=== PATIENT | female | born 1995 | race Caucasian/White ===

== ENCOUNTER 2016-04-18 10:24 | Outpatient (CLI) | payer MEDICAID ==
[~2016-04-18] VITALS: Ht 157.5 cm; Wt 95.7 kg
[2016-04-18 10:38] VITALS: Ht 157.5 cm; Wt 95.7 kg
[2016-04-18 10:39] VITALS: BP 103/52; PULSE 69; RESP 18
[2016-04-18] MEDS ORDERED: LACTATED RINGER'S 1,000 ML IV SCH (11:00)
[2016-04-18] MEDS ORDERED: LACTATED RINGER'S 1,000 ML IV ONE (11:00)
[2016-04-18] MEDS ORDERED: TERBUTALINE 1 MG/ML INJ SC ONE (11:00)
[2016-04-18] MEDS ORDERED: TERBUTALINE 1 ML ONE (11:01)
[2016-04-18 11:21] LABS: ADD UMIC YES; URINE BILIRUBIN (Dip) NEGATIVE (NEGATIVE); URINE BLOOD (Dip) NEGATIVE (NEGATIVE); URINE COLOR LT. YELLOW (YELLOW); URINE GLUCOSE (Dip) NEGATIVE (NEGATIVE); URINE KETONES (Dip) NEGATIVE (NEGATIVE); URINE LEUKOCYTE ESTERASE (Dip) TRACE (NEGATIVE); URINE NITRITE (Dip) NEGATIVE (NEGATIVE); URINE TOTAL PROTEIN (Dip) NEGATIVE (NEGATIVE); URINE UROBILINOGEN (Dip) 0.2 E.U./dL (0.1-1.0)
[2016-04-18 11:41] LABS: BACTERIA,URINE MODERATE; SQUAMOUS EPITHELIAL CELL,UR FEW; URINE RBCS NONE SEEN /HPF (0)
--- NOTE | 2016-04-18 11:44 | RADRPT ---
PROCEDURE: Limited obstetric ultrasound CLINICAL INDICATION: labor TECHNIQUE: Multiple transverse and longitudinal grayscale images of the pelvis were obtained win sabdominally and endovaginally.. COMPARISON: None FINDINGS: There is a single live intrauterine gestation in a vertex position with a heart rate of 132 bp m. The cervix is closed and measures 4.6 cm in length. RPTAT: AA IMPRESSION: The cervix is closed and measures 4.6 cm in length. Diogenes Jaime Physician Date Time Electronically viewed and signed by Diogenes Jaime Physician on 04/18/2016 11:44 RA/
== END 2016-04-18 14:28 | disposition home or self-care (01) ==
LOC: OBT 10:24 → L-D 10:25 → OBT 14:28
PROVIDERS: ATTEND Obstetrics & Gynecology
DX: O60.03 Preterm labor without delivery, third trimester (principal); Z3A.00 Weeks of gestation of pregnancy not specified
CPT/HCPCS: 76817; 81001; J3105; J7120; Z7500; 81003; G0463

== ENCOUNTER 2016-05-19 18:36 | Outpatient (CLI) | payer MEDICAID ==
[~2016-05-19] VITALS: Ht 157.5 cm; Wt 99.8 kg
[2016-05-19 18:58] VITALS: BP 111/64; PULSE 78; RESP 18
[2016-05-19] MEDS ORDERED: PRENAT PO (19:01)
[2016-05-19] MEDS ORDERED: FERR325C PO (19:01)
--- NOTE | 2016-05-19 19:39 | RADRPT ---
PROCEDURE: US OB biophysical profile. CLINICAL INDICATION: evaluation TECHNIQUE: Multiple sonographic images of the pelvis were obtained. The images were reviewed on a PACS workstation. COMPARISON: No prior studies are available for comparison. FINDINGS: There is a single viable intrauterine gestation. Cardiac activity is present with 141 beats per min brian. There is a vertex presentation. The placenta is anterior. There is no evidence of placental abruption. There is a normal amount of amniotic fluid with an MATT = 8.9 cm. Biophysical profile: movement 2/2 tone 2/2. breathing 2/2 MATT 2/2 Total 10/25 RPTAT: AA . IMPRESSION: Normal biophysical profile. Physician Robles Date Time Electronically viewed and signed by Physician Robles on 05/19/2016 19:38 /
--- NOTE | 2016-05-19 20:04 | PN ---
Date/Time of Note Date/Time of Note DATE: 05/19/16 TIME: 19:45 OB Subjective Subjective Subjective 21 yo P1011@ 37wks 4 days c/o LOF; she is not sure if it was urine good fm, no VB, no ctx OB Objective Objective Objective Nml VS Abdomen- gravid, n/t SVE- deferred FHT- 140's; Cat I [place]- no ctx Abdomen: WNL Heart Rate: 140's Accelerations: Accelerations Present Decelerations: No Decelerations Varibility: Moderate Contractions on Admission: None OB Assessment/Plan Other Assessment: 21 yo P1@ 37.4 wks, r/o SROM - reassuring status -unlikely sROM, nitrazine neg; MATT 8.8, BPP 8/8 Other plan: send ROM + if negative, d/c home w labor pecautions EMILIA HOPKINS MD May 19, 2016 20:04
--- NOTE | 2016-05-19 21:47 | TRIAGE ---
OB Triage Datetime Report Generated by CPN: 05/19/2016 21:46 Datetime: 05/19/2016 21:17 Stage of : OB Triage Labor Evaluation Frequency: 6-12 Monitor Mode: External Duration (sec)2399: 60-100 Quality: Mild Resting Tone [place]: Relaxed Heart Rate FHR Baseline Rate: 125 Monitor Mode: External US FHR Baseline Changes: No Baseline Change Variability: Moderate 6-25 bpm Accelerations: 15X15 Decelerations: None Category: Category I Datetime: 05/19/2016 21:16 Vaginal Exam Dilatation (cms): 2.0 Effacement (%): 50 Station: -3 Exam By: m HAYES Vaginal Bleeding: None Cervix, Consistency: Firm Presentation 'A': Cephalic Datetime: 05/19/2016 20:00 Stage of : OB Triage Labor Evaluation Frequency: 2-12 Monitor Mode: External Duration (sec)2399: 40-100 Quality: Mild Resting Tone [place]: Relaxed Heart Rate FHR Baseline Rate: 135 Variability: Moderate 6-25 bpm Accelerations: 15X15 Decelerations: Variable Datetime: 05/19/2016 19:41 Vaginal Exam Dilatation (cms): 2.0 Effacement (%): 50 Station: -3 Exam By: M HAYES Vaginal Bleeding: None Pool: Negative Nitrazine: Negative Cervix, Consistency: Firm Cervix, Position: Posterior Presentation 'A': Cephalic Datetime: 05/19/2016 19:38 Stage of : OB Triage Datetime: 05/19/2016 19:28 Stage of : OB Triage Datetime: 05/19/2016 18:56 Assessment Type: Triage Maternal Assessment Level of Consciousness: Fully Conscious DTR's/Clonus: DTRs 1+; No Clonus Headache: Denies Blurred Vision: No Respiratory Effort: Unlabored Breath Sounds, Left: Clear and Equal Breath Sounds, Right: Clear and Equal Nausea/Vomiting: Denies RUQ Epigastric Pain: Denies Lower Extremities Edema: None Degree: None Upper Extremities Edema: None Degree: None Facial Edema: None Fall Risk Assessment History of Falling: (0) No Secondary Diagnosis: (15) Yes (Annotations: PTL 1ST ) Ambulatory Aid: (0) Bedrest/Nurse Assist IV Therapy: (0) No Gait: (0) Normal/Bedrest/Immobile Mental Status: (0) Oriented to Own Ability Fall Score: 15 Fall Risk Score Definition: No Risk: No action required Datetime: 05/19/2016 18:51 Time of Arrival: 05/19/2016 18:34 EGA: 37.4 Arrived By: Ambulatory Arrived From: Dr. Peres Chief Complaint: sent from clinic for r/o labor Movement: Present Contractions: Irregular Time Contractions Began: 05/18/2016 22:00 Contractions: q5-10 Rupture of Membranes: Unsure Vaginal Bleeding: None Vaginal Discharge: Present Recent Sexual Intercouse: Denies Abdominal Trauma: Not Applicable Patient Complaints: Contractions; Back Pain Additional Patient Complaints: Pt statese she'been leaking fluid since am Time Provider Notified: 05/19/2016 19:03 Provider Notified: ariane Initial Plan: VS, EFM, SVE, ROM+, BPP Datetime: 05/19/2016 18:44 Stage of : OB Triage Monitor Mode: External Monitor Mode: External US Datetime: 04/18/2016 13:20 Labor Evaluation Frequency: 1/HR Monitor Mode: External Duration (sec)2399: 80 Quality: Mild Pattern: Normal: <= 5 Contractions in 10 Minutes Resting Tone [place]: Relaxed Heart Rate FHR Baseline Rate: 135 Monitor Mode: External US FHR Baseline Changes: No Baseline Change Variability: Moderate 6-25 bpm Accelerations: 15X15 Decelerations: None Category: Category I Datetime: 04/18/2016 12:10 Labor Evaluation Frequency: OCCAS Monitor Mode: External Duration (sec)2399: 50-60 Quality: Mild Pattern: Normal: <= 5 Contractions in 10 Minutes Resting Tone [place]: Relaxed Heart Rate FHR Baseline Rate: 135 Monitor Mode: External US FHR Baseline Changes: No Baseline Change Variability: Moderate 6-25 bpm Accelerations: 15X15 Decelerations: None Category: Category I Datetime: 04/18/2016 11:07 Labor Evaluation Frequency: OCCAS Monitor Mode: External Duration (sec)2399: 40-80 Quality: Mild Pattern: Normal: <= 5 Contractions in 10 Minutes Resting Tone [place]: Relaxed Heart Rate FHR Baseline Rate: 135 Monitor Mode: External US Variability: Moderate 6-25 bpm Accelerations: 15X15 Decelerations: None Category: Category I Datetime: 04/18/2016 10:36 Stage of : OB Triage Assessment Type: Triage Maternal Assessment Level of Consciousness: Fully Conscious DTR's/Clonus: DTRs 2+; No Clonus Headache: Denies Blurred Vision: No Respiratory Effort: Unlabored; Regular Rhythm; Equal Expansion Breath Sounds, Left: Clear and Equal Breath Sounds, Right: Clear and Equal Nausea/Vomiting: Denies RUQ Epigastric Pain: Denies Lower Extremities Edema: Bilateral Lower Extremities Degree: 1+ Upper Extremities Edema: None Degree: None Facial Edema: None Temperature Route: Axillary Fall Risk Assessment History of Falling: (0) No Secondary Diagnosis: (0) No Ambulatory Aid: (0) Bedrest/Nurse Assist IV Therapy: (0) No Gait: (0) Normal/Bedrest/Immobile Mental Status: (0) Oriented to Own Ability Fall Score: 0 Fall Risk Score Definition: No Risk: No action required Labor Evaluation Frequency: 0 Monitor Mode: External Resting Tone [place]: Relaxed Heart Rate FHR Baseline Rate: 135 Monitor Mode: External US Variability: Moderate 6-25 bpm Decelerations: None Category: Category I Pain Assessment Pain Scale: 6 Pain Presence: Intermittent Pain Type: Cramping; Contraction Pain Location: Abdomen Pain Goal: 3 Pain Relief Measures: Comfort Measures Datetime: 04/18/2016 10:35 Time of Arrival: 04/18/2016 10:23 EGA: 33.1 Arrived By: Ambulatory Arrived From: Other Unit in Hospital Chief Complaint: SENT FROM T FOR UC'S, DENIES LEAKING OR BLEEDING Movement: Present Contractions: Occasional Rupture of Membranes: Denies Vaginal Bleeding: None Vaginal Discharge: Denies Recent Sexual Intercouse: Yes Abdominal Trauma: Not Applicable Patient Complaints: Contractions; Cramping Time Provider Notified: 04/18/2016 13:57 Provider Notified: DR HIKCS Initial Plan: MONITOR, NST, UA, IV HYDRATION AND CERVICAL LENGHT
== END 2016-05-19 21:30 | disposition home or self-care (01) ==
LOC: OBT 18:36 → L-D 18:36 → OBT 21:30
PROVIDERS: ATTEND Obstetrics & Gynecology
DX: O26.893 Other specified pregnancy related conditions, third trimester (principal); Z3A.37 37 weeks gestation of pregnancy
CPT/HCPCS: 76818; 84112; Z7500; G0463

== ENCOUNTER 2016-05-23 10:46 | Inpatient (IN) | payer MEDICAID ==
[~2016-05-23] VITALS: Ht 157.5 cm; Wt 97.7 kg
[~2016-05-23 10:46] MED LIST: FERR325C PO; PRENAT PO
[2016-05-23 11:12] VITALS: BP 111/60; PULSE 81; RESP 18; Ht 157.5 cm; Wt 97.7 kg
[2016-05-23] MEDS ORDERED: LACTATED RINGER'S 1,000 ML IV PRN (11:30)
[2016-05-23] MEDS ORDERED: LIDOCAINE 1% (MPF) 30 ML INJ INJ PRN (11:30)
[2016-05-23] MEDS ORDERED: CARBOPROST 250 MCG INJ IM PRN (11:30)
[2016-05-23] MEDS ORDERED: METHYLERGONOVINE 0.2 MG INJ IM PRN (11:30)
[2016-05-23] MEDS ORDERED: OXYTOCIN 30 UNITS/LR 500 ML IV PRN (11:30)
[2016-05-23] MEDS ORDERED: MISOPROSTOL 200 MCG TAB PR PRN (11:30)
[2016-05-23] MEDS ORDERED: IBUPROFEN 600 MG TAB PO PRN (11:30)
[2016-05-23] MEDS ORDERED: OXYTOCIN 30 UNITS/LR 500 ML IV SCH ×3 (11:30→13:00)
[2016-05-23] MEDS ORDERED: BUTORPHANOL 2 MG INJ IV PRN (11:30)
[2016-05-23] MEDS: LACTATED RINGER'S 1,000 ML IV SCH ×2 (11:44→18:09)
[2016-05-23 11:57] LABS: ADD SCAN DIFF NO
[2016-05-23 12:14] LABS: BASOPHILS % 0.3 % (0.0-2.0); EOSINOPHILS # 0.1 10^3/ul (0.0-0.5); EOSINOPHILS % 1.7 % (0.0-7.0); HEMATOCRIT 35.4 % (37.0-47.0); HEMOGLOBIN 12.4 g/dl (12.0-16.0); LYMPHOCYTES # 1.3 10^3/ul (0.8-2.9); LYMPHOCYTES % 21.7 % (15.0-51.0); MEAN CORPUSCULAR HEMOGLOBIN 30.9 pg (29.0-33.0); MEAN CORPUSCULAR VOLUME 88.3 fl (82.0-101.0); MEAN PLATELET VOLUME 9.6 fl (7.4-10.4); MONOCYTE # 0.5 10^3/ul (0.3-0.9); MONOCYTES % 8.1 % (0.0-11.0); NEUTROPHIL # 4.1 10^3/ul (1.6-7.5); NEUTROPHILS % 67.7 % (39.0-77.0); PLATELET COUNT 214 10^3/UL (140-415); RED BLOOD COUNT 4.01 10^6/ul (4.20-5.40); RED CELL DISTRIBUTION WIDTH 13.7 % (11.5-14.5)
[2016-05-23] MEDS ORDERED: ONDANSETRON 4 MG INJ IV STA (12:16)
[2016-05-23 12:18] LABS: INR 0.91; PROTIME 12.2 Sec (12.2-14.2)
[2016-05-23 12:19] LABS: PARTIAL THROMBOPLASTIN TIME 27.5 Sec (25.0-35.0)
[2016-05-23] MEDS ORDERED: CITRIC ACID/NA CITRATE 30 ML CUP PO ONE (12:30)
--- NOTE | 2016-05-23 17:03 | RADRPT ---
PROCEDURE: US biophysical profile. CLINICAL INDICATION: Decreased motion. TECHNIQUE: Multiple sonographic images of the uterus were obtained. The images were revi ewed on a PACS workstation. COMPARISON: 05/19/2016. FINDINGS: There is a single live intrauterine gestation. heart rate is 144 beats per minute. The position is cephalic. The placenta is anterior grade III with no abruption or previa. The MATT is 7.5 cm. (Normal = 5-20 cm.) Breathing Movement: 2 Gross Body Movement: 2 Tone: 2 Qualitative Amniotic Fluid Volume: 2 TOTAL: 8 IMPRESSION: 1. The biophysical score is 8/8. RPTAT: QQ .Ryan Henry MD, MD Date Time Electronically viewed and signed by .Ryan Henry MD, on 05/23/2016 17:02 .R/
--- NOTE | 2016-05-24 11:38 | NSTRPT ---
NST Information Datetime Report Generated by CPN: 05/24/2016 11:38 Datetime: 05/23/2016 08:40 NST Information EGA: 38.1 Test Number: 13 Time on Monitor: 05/23/2016 09:06 Time off Monitor: 05/23/2016 10:14 NST Duration (Min): 68 Reason for NST: Low EMIGDIO Test and Monitor Explained: Monitor Explained; Test Explained; Verbalized Understanding Pulse: 69 Resp: 18 SBP: 114 DBP: 56 Test Evaluation Patient States Movement: Present Contraction Frequency: Q9-13, pt states 5/10 on pain scale FHR Baseline : 140 Variability: Moderate 6-25bpm Accelerations: 15X15 Decelerations: None FHR Category: Category II NST Results: Reactive Comments: To u/s MATT-10.1 CM, CEPH. Strip reviewed by Dr Virk, recommending delivery due to categ oy II tracing with difficulty determining baseline. 1023-Report to Dr Haney, order received to admit to L_D for delivery. 1028-Report called to Silv ia RN, L_D, POC explained to pt, states understanding and denies further questions at this time. Pt to L_D Electronically Signed By E-Signature: with User ID: [id number] Datetime: 05/16/2016 08:48 NST Information EGA: 37.1 NST Duration (Min): 44 Datetime: 05/12/2016 09:35 NST Information EGA: 36.4 NST Duration (Min): 25 Datetime: 05/09/2016 08:25 NST Information EGA: 36.1 NST Duration (Min): 35 Datetime: 05/05/2016 09:37 NST Information EGA: 35.4 NST Duration (Min): 26 Datetime: 05/02/2016 09:18 NST Information EGA: 35.1 NST Duration (Min): 32 Datetime: 04/28/2016 09:39 NST Information EGA: 34.4 NST Duration (Min): 37 Datetime: 04/25/2016 08:20 NST Information EGA: 34.1 NST Duration (Min): 29 Datetime: 04/21/2016 08:45 NST Information EGA: 33.4 NST Duration (Min): 22 Datetime: 04/18/2016 08:58 NST Information EGA: 33.1 NST Duration (Min): 36 Datetime: 04/14/2016 08:25 NST Information EGA: 32.4 NST Duration (Min): 41 Datetime: 04/11/2016 10:21 NST Information EGA: 32.1 Datetime: 04/11/2016 10:11 NST Duration (Min): 21
--- NOTE | 2016-06-13 13:30 | DS ---
Date/Time of Note Date/Time of Note DATE: 06/13/16 TIME: 13:28 Discharge Summary Admission/Discharge Info Admit Date/Time May 23, 2016 at 10:48 Discharge Date/Time May 23, 2016 at 21:15 Final Diagnosis R/O labor Patient Condition: Good Hx of Present Illness Term rule out labor Hospital Course Uneventful Home Meds Reported Medications Ferrous Sulfate (Iron) 325 Mg Capsule.er, 325 MG PO DAILY, CAP 05/19/16 Multivit/Min/Fol Ac/Iron/Pren* ( S*) 1 Tab Tab, 1 TAB PO DAILY, TAB 05/19/16 Follow-up Plan Follow-up at the clinic to call for appointment TIMOTHY HICKS MD Jun 13, 2016 13:30
== END 2016-05-23 21:15 | disposition home or self-care (01) | DRG 778 ==
LOC: EDSTATUS 10:46 → L-D 10:48
PROVIDERS: ADMIT Obstetrics & Gynecology; ATTEND Obstetrics & Gynecology
DX: O60.03 Preterm labor without delivery, third trimester (principal); Z3A.38 38 weeks gestation of pregnancy
CPT/HCPCS: 59025; 76816; 76818; 85025; 85610; 85730; 86592; 86900; 86901; 87340; J2590; J7120

== ENCOUNTER 2016-05-27 11:42 | Outpatient (CLI) | payer MEDICAID ==
[~2016-05-27] VITALS: Ht 157.5 cm; Wt 99.8 kg
[2016-05-27 12:07] VITALS: Ht 157.5 cm; Wt 99.8 kg
[2016-05-27 12:08] VITALS: BP 115/59; PULSE 81; RESP 18
--- NOTE | 2016-05-27 12:47 | TRIAGE ---
OB Triage Datetime Report Generated by CPN: 05/27/2016 12:46 Datetime: 05/27/2016 11:58 Time of Arrival: 05/27/2016 11:40 EGA: 38.5 Arrived By: Ambulatory Arrived From: Home Chief Complaint: Pt's abdomen grazed into countertop "like a splinter that went deep". Pt also c/o contractions Movement: Decreased Contractions: Regular Rupture of Membranes: Denies Vaginal Discharge: Denies Recent Sexual Intercouse: Denies Abdominal Trauma: Not Applicable Patient Complaints: Contractions; Other Time Provider Notified: 05/27/2016 12:00 Provider Notified: Kurt Initial Plan: NST Datetime: 05/27/2016 11:53 Temperature Route: Oral Datetime: 05/27/2016 11:44 Stage of : OB Triage Datetime: 05/23/2016 21:15 Pain Assessment Comments: PT. STATES THAT PAIN IS TOLERABLE, AND UNCHANGED Datetime: 05/23/2016 21:00 Labor Evaluation Frequency: 3-7 Monitor Mode: External Duration (sec)2399: 40-70 Pattern: Normal: <= 5 Contractions in 10 Minutes Heart Rate FHR Baseline Rate: 135 Monitor Mode: External US FHR Baseline Changes: No Baseline Change Variability: Moderate 6-25 bpm Accelerations: 15X15 Decelerations: None Category: Category I Comments: NST REACTIVE FOR D/C HOME Datetime: 05/23/2016 20:48 Comments: FOUND PT. SITTING UP AND FORWARD IN BED CAUSING LOSS OF EXTERNAL CONTACT WITH CARDIOMONI TOR Datetime: 05/23/2016 20:30 Labor Evaluation Frequency: 3-5 Monitor Mode: External Duration (sec)2399: 50-60 Pattern: Normal: <= 5 Contractions in 10 Minutes Heart Rate FHR Baseline Rate: 135 Monitor Mode: External US FHR Baseline Changes: No Baseline Change Variability: Moderate 6-25 bpm Decelerations: Variable Category: Category II Comments: VARIABLE X1 Datetime: 05/23/2016 20:17 Stage of : Labor Datetime: 05/23/2016 19:34 Assessment Type: Ongoing Assessment Maternal Assessment Level of Consciousness: Fully Conscious DTR's/Clonus: DTRs 2+; No Clonus Headache: Denies Blurred Vision: No Respiratory Effort: Unlabored; Regular Rhythm; Equal Expansion Breath Sounds, Left: Clear and Equal Breath Sounds, Right: Clear and Equal Nausea/Vomiting: Denies RUQ Epigastric Pain: Denies Lower Extremities Edema: Bilateral Lower Extremities Degree: 1+ Upper Extremities Edema: None Facial Edema: None Temperature Route: Oral Fall Risk Assessment History of Falling: (0) No Secondary Diagnosis: (0) No Ambulatory Aid: (0) Bedrest/Nurse Assist IV Therapy: (20) Yes Gait: (0) Normal/Bedrest/Immobile Mental Status: (0) Oriented to Own Ability Fall Score: 20 Fall Risk Score Definition: No Risk: No action required Datetime: 05/23/2016 19:30 Labor Evaluation Frequency: 3-7 Monitor Mode: External Duration (sec)2399: 50-90 Pattern: Normal: <= 5 Contractions in 10 Minutes Heart Rate FHR Baseline Rate: 135 Monitor Mode: External US FHR Baseline Changes: No Baseline Change Variability: Moderate 6-25 bpm Accelerations: 15X15 Datetime: 05/23/2016 19:23 Stage of : Labor Datetime: 05/23/2016 18:57 Stage of : Labor Labor Evaluation Frequency: 2-4 Monitor Mode: External Duration (sec)2399: 70-120 Quality: Moderate Pattern: Normal: <= 5 Contractions in 10 Minutes Resting Tone [place]: Relaxed Heart Rate FHR Baseline Rate: 140 Monitor Mode: External US Variability: Moderate 6-25 bpm Accelerations: 15X15 Decelerations: None Pain Assessment Pain Scale: 7 Pain Presence: Intermittent Pain Type: Contraction; Pressure Pain Location: Abdomen; Back Pain Goal: 2 Pain Relief Measures: Comfort Measures Membrane Status: Intact Datetime: 05/23/2016 18:07 Monitor Mode: External Monitor Mode: External US Datetime: 05/23/2016 17:55 Stage of : Labor Labor Evaluation Frequency: 3-4 Monitor Mode: External Duration (sec)2399: 60-100 Quality: Moderate Pattern: Normal: <= 5 Contractions in 10 Minutes Resting Tone [place]: Relaxed Heart Rate FHR Baseline Rate: 140 Monitor Mode: External US Variability: Moderate 6-25 bpm Decelerations: None Pain Assessment Pain Scale: 7 Pain Presence: Intermittent Pain Type: Contraction; Pressure Pain Location: Abdomen; Back Pain Goal: 2 Pain Relief Measures: Comfort Measures Membrane Status: Intact Datetime: 05/23/2016 17:35 Stage of : Labor Labor Evaluation Frequency: 2-5 Monitor Mode: External Duration (sec)2399: 60-100 Quality: Moderate Pattern: Normal: <= 5 Contractions in 10 Minutes Resting Tone [place]: Relaxed Heart Rate FHR Baseline Rate: 135 Monitor Mode: External US Variability: Moderate 6-25 bpm Decelerations: Variable (Annotations: TRUE 120) Pain Assessment Pain Scale: 7 Pain Presence: Intermittent Pain Type: Contraction; Pressure Pain Location: Abdomen; Back Pain Goal: 2 Pain Relief Measures: Comfort Measures Membrane Status: Intact Datetime: 05/23/2016 17:22 Monitor Mode: External Datetime: 05/23/2016 17:15 Monitor Mode: External US Datetime: 05/23/2016 17:05 Stage of : Labor Labor Evaluation Frequency: 2-5 Monitor Mode: External Duration (sec)2399: 60-100 Quality: Moderate Pattern: Normal: <= 5 Contractions in 10 Minutes Resting Tone [place]: Relaxed Heart Rate FHR Baseline Rate: 135 Monitor Mode: External US Variability: Moderate 6-25 bpm Decelerations: None Pain Assessment Pain Scale: 7 Pain Presence: Intermittent Pain Type: Contraction; Pressure Pain Location: Abdomen; Back Pain Goal: 2 Pain Relief Measures: Comfort Measures Membrane Status: Intact Datetime: 05/23/2016 16:35 Stage of : Labor Labor Evaluation Frequency: 2-6 Monitor Mode: External Duration (sec)2399: 60-100 Quality: Moderate Pattern: Normal: <= 5 Contractions in 10 Minutes Resting Tone [place]: Relaxed Heart Rate FHR Baseline Rate: 135 Monitor Mode: External US Variability: Moderate 6-25 bpm Decelerations: None Pain Assessment Pain Scale: 7 Pain Presence: Intermittent Pain Type: Contraction; Pressure Pain Location: Abdomen; Back Pain Goal: 2 Pain Relief Measures: Comfort Measures Membrane Status: Intact Datetime: 05/23/2016 16:24 Vaginal Exam Dilatation (cms): 2.0 Effacement (%): 50 Station: -2 Exam By: DR KURT Membrane Status: Intact Datetime: 05/23/2016 16:04 Stage of : Labor Labor Evaluation Frequency: 2-3 Monitor Mode: External Duration (sec)2399: 60-90 Quality: Moderate Pattern: Normal: <= 5 Contractions in 10 Minutes Resting Tone [place]: Relaxed Heart Rate FHR Baseline Rate: 135 Monitor Mode: External US Variability: Moderate 6-25 bpm Decelerations: None Pain Assessment Pain Scale: 7 Pain Presence: Intermittent Pain Type: Contraction; Pressure Pain Location: Abdomen; Back Pain Goal: 2 Pain Relief Measures: Comfort Measures Pain Assessment Comments: STATES CURRENT PAIN LEVEL IS ACCEPTABLE Membrane Status: Intact Datetime: 05/23/2016 15:34 Labor Evaluation Frequency: 1,5-5 Monitor Mode: External Duration (sec)2399: 20-70 Quality: Moderate Pattern: Normal: <= 5 Contractions in 10 Minutes Resting Tone [place]: Relaxed Heart Rate FHR Baseline Rate: 130 Monitor Mode: External US FHR Baseline Changes: No Baseline Change Variability: Moderate 6-25 bpm Decelerations: None Pain Assessment Pain Scale: 7 Pain Presence: Intermittent Pain Type: Contraction; Pressure Pain Location: Abdomen; Back Pain Goal: 2 Pain Relief Measures: Comfort Measures Membrane Status: Intact Datetime: 05/23/2016 15:05 Labor Evaluation Frequency: 2-3.5 Monitor Mode: External Duration (sec)2399: 50-90 Quality: Moderate Pattern: Normal: <= 5 Contractions in 10 Minutes Resting Tone [place]: Relaxed Heart Rate FHR Baseline Rate: 135 Monitor Mode: External US FHR Baseline Changes: No Baseline Change Variability: Moderate 6-25 bpm Accelerations: 15X15 Decelerations: None Category: Category I Pain Assessment Pain Scale: 7 Pain Presence: Intermittent Pain Type: Contraction; Pressure Pain Location: Abdomen; Back Pain Goal: 2 Pain Relief Measures: Comfort Measures Pain Assessment Comments: Pt refusing pain medication and epidural at this time Datetime: 05/23/2016 14:34 Labor Evaluation Frequency: 3-5 Monitor Mode: External Duration (sec)2399: 60-90 Quality: Moderate Pattern: Normal: <= 5 Contractions in 10 Minutes Resting Tone [place]: Relaxed Heart Rate FHR Baseline Rate: 130 Monitor Mode: External US FHR Baseline Changes: No Baseline Change Variability: Moderate 6-25 bpm Accelerations: 15X15 Decelerations: Variable Category: Category III Datetime: 05/23/2016 14:12 Vaginal Exam Dilatation (cms): 2.0 Effacement (%): 50 Station: -2 Exam By: MD Kurt Datetime: 05/23/2016 14:04 Labor Evaluation Frequency: 2-5 Monitor Mode: External Duration (sec)2399: 50-120 Quality: Moderate Pattern: Normal: <= 5 Contractions in 10 Minutes Resting Tone [place]: Relaxed Heart Rate FHR Baseline Rate: 135 Monitor Mode: External US FHR Baseline Changes: No Baseline Change Variability: Moderate 6-25 bpm Accelerations: 15X15 Decelerations: None Category: Category I Pain Assessment Pain Scale: 7 Pain Presence: Intermittent Pain Type: Contraction; Pressure Pain Location: Abdomen; Back Pain Goal: 2 Pain Relief Measures: Comfort Measures Pain Assessment Comments: Pt refusing epidural and pain medication at this time Datetime: 05/23/2016 13:45 Heart Rate FHR Baseline Rate: 135 Monitor Mode: External US FHR Baseline Changes: No Baseline Change Variability: Moderate 6-25 bpm Accelerations: 15X15 Decelerations: None Category: Category I Datetime: 05/23/2016 13:25 Labor Evaluation Frequency: 2-5 Monitor Mode: External Duration (sec)2399: 60-80 Quality: Moderate Pattern: Normal: <= 5 Contractions in 10 Minutes Resting Tone [place]: Relaxed Heart Rate FHR Baseline Rate: 145 Monitor Mode: External US FHR Baseline Changes: No Baseline Change Variability: Moderate 6-25 bpm Accelerations: 15X15 Decelerations: None Category: Category I Pain Assessment Pain Scale: 7 Pain Presence: Intermittent Pain Type: Contraction; Pressure Pain Location: Abdomen; Back Pain Goal: 2 Pain Relief Measures: Comfort Measures Pain Assessment Comments: Pt refusing pain medication at this time Datetime: 05/23/2016 12:30 Labor Evaluation Frequency: X3 Monitor Mode: External Duration (sec)2399: 40-60 Quality: Moderate Pattern: Normal: <= 5 Contractions in 10 Minutes Resting Tone [place]: Relaxed Heart Rate FHR Baseline Rate: 130 Monitor Mode: External US FHR Baseline Changes: No Baseline Change Variability: Moderate 6-25 bpm Accelerations: 15X15 Decelerations: None Category: Category I Pain Assessment Pain Scale: 7 Pain Presence: Intermittent Pain Type: Contraction Pain Location: Abdomen Pain Goal: 2 Pain Relief Measures: Comfort Measures Datetime: 05/23/2016 12:00 Labor Evaluation Frequency: OCC Monitor Mode: External Quality: Moderate Pattern: Normal: <= 5 Contractions in 10 Minutes Resting Tone [place]: Relaxed Heart Rate FHR Baseline Rate: 140 Monitor Mode: External US FHR Baseline Changes: No Baseline Change Variability: Moderate 6-25 bpm Accelerations: 15X15 Decelerations: None Category: Category I Pain Assessment Pain Scale: 7 Pain Presence: Intermittent Pain Type: Contraction Pain Location: Abdomen Pain Goal: 2 Pain Relief Measures: Pain Medication Given Datetime: 05/23/2016 11:46 Vaginal Exam Dilatation (cms): 2.0 Effacement (%): 50 Station: -3 Exam By: Mirtha RN Membrane Status: Intact Datetime: 05/23/2016 11:38 Time of Arrival: 05/23/2016 11:00 EGA: 38.1 Arrived By: Direct Admit Arrived From: NST Datetime: 05/23/2016 11:30 Labor Evaluation Frequency: x1 Monitor Mode: External Duration (sec)2399: 100 Quality: Moderate Pattern: Normal: <= 5 Contractions in 10 Minutes Resting Tone [place]: Relaxed Heart Rate FHR Baseline Rate: 140 Monitor Mode: External US FHR Baseline Changes: No Baseline Change Variability: Moderate 6-25 bpm Accelerations: 10X10 Decelerations: None Category: Category II Pain Assessment Pain Scale: 7 Pain Presence: Intermittent Pain Type: Contraction Pain Location: Abdomen Pain Goal: 2 Pain Relief Measures: Comfort Measures Datetime: 05/23/2016 11:06 Stage of : Labor Assessment Type: Admission Assessment Vaginal Bleeding: None Maternal Assessment Level of Consciousness: Fully Conscious DTR's/Clonus: DTRs 2+; No Clonus Headache: Denies Blurred Vision: No Respiratory Effort: Unlabored; Regular Rhythm; Equal Expansion Breath Sounds, Left: Clear and Equal Breath Sounds, Right: Clear and Equal Nausea/Vomiting: Denies RUQ Epigastric Pain: Denies Lower Extremities Edema: Bilateral Lower Extremities Degree: 1+ Upper Extremities Edema: Bilateral Upper Extremities Degree: 1+ Facial Edema: None Fall Risk Assessment History of Falling: (0) No Secondary Diagnosis: (0) No Ambulatory Aid: (0) Bedrest/Nurse Assist IV Therapy: (20) Yes Gait: (0) Normal/Bedrest/Immobile Mental Status: (0) Oriented to Own Ability Fall Score: 20 Fall Risk Score Definition: No Risk: No action required Pain Assessment Pain Scale: 7 Pain Presence: Intermittent Pain Type: Contraction Pain Location: Abdomen; Back Pain Goal: 2 Datetime: 05/19/2016 18:56 Fall Score: 15 Fall Risk Score Definition: No Risk: No action required Datetime: 05/19/2016 18:51 EGA: 37.4 Datetime: 04/18/2016 10:36 Fall Score: 0 Fall Risk Score Definition: No Risk: No action required Datetime: 04/18/2016 10:35 EGA: 33.1
--- NOTE | 2016-07-26 22:01 | QN ---
Documentation Comment pre term r/o labor TIMOTHY HICKS MD July 26, 2016 22:01
--- NOTE | 2016-08-02 20:20 | QN ---
Documentation Comment suspected labor TIMOTHY HICKS MD August 02, 2016 20:20
== END 2016-05-27 12:40 | disposition home or self-care (01) ==
LOC: OBT 11:42 → L-D 11:42 → OBT 12:40
PROVIDERS: ATTEND Obstetrics & Gynecology
DX: O26.893 Other specified pregnancy related conditions, third trimester (principal); Z3A.38 38 weeks gestation of pregnancy
CPT/HCPCS: G0463

== ENCOUNTER 2016-05-29 05:01 | Inpatient (IN) | payer MEDICAID ==
[~2016-05-29] VITALS: Ht 157.5 cm; Wt 100.4 kg
[2016-05-29 05:05] VITALS: Ht 157.5 cm; Wt 100.4 kg
[2016-05-29 05:14] VITALS: BP 111/61; PULSE 61; RESP 18
[2016-05-29] MEDS ORDERED: LACTATED RINGER'S 1,000 ML IV ONE (06:00)
[2016-05-29] MEDS ORDERED: LACTATED RINGER'S 1,000 ML IV SCH ×2 (06:12→07:00)
[2016-05-29] MEDS ORDERED: LACTATED RINGER'S 1,000 ML IV PRN (06:15)
[2016-05-29 06:17] LABS: ADD SCAN DIFF NO
[2016-05-29 06:20] LABS: BASOPHILS % 0.3 % (0.0-2.0); EOSINOPHILS # 0.1 10^3/ul (0.0-0.5); EOSINOPHILS % 1.5 % (0.0-7.0); HEMATOCRIT 35.4 % (37.0-47.0); HEMOGLOBIN 12.4 g/dl (12.0-16.0); LYMPHOCYTES # 2.3 10^3/ul (0.8-2.9); LYMPHOCYTES % 30.1 % (15.0-51.0); MEAN CORPUSCULAR HEMOGLOBIN 30.7 pg (29.0-33.0); MEAN CORPUSCULAR VOLUME 87.6 fl (82.0-101.0); MEAN PLATELET VOLUME 9.4 fl (7.4-10.4); MONOCYTE # 0.6 10^3/ul (0.3-0.9); MONOCYTES % 7.6 % (0.0-11.0); NEUTROPHIL # 4.5 10^3/ul (1.6-7.5); NEUTROPHILS % 59.8 % (39.0-77.0); PLATELET COUNT 223 10^3/UL (140-415); RED BLOOD COUNT 4.04 10^6/ul (4.20-5.40); RED CELL DISTRIBUTION WIDTH 13.8 % (11.5-14.5); WHITE BLOOD COUNT 7.5 10^3/ul (4.8-10.8)
--- NOTE | 2016-05-29 06:29 | TRIAGE ---
OB Triage Datetime Report Generated by CPN: 05/29/2016 06:29 Datetime: 05/29/2016 06:20 Assessment Type: Admission Assessment Maternal Assessment Level of Consciousness: Fully Conscious DTR's/Clonus: DTRs 1+; No Clonus Headache: Denies Blurred Vision: No Lower Extremities Edema: Bilateral Lower Extremities Degree: 1+ Upper Extremities Edema: None Degree: None Facial Edema: None Pain Assessment Pain Scale: 8 Pain Presence: Intermittent Pain Type: Contraction Pain Location: Abdomen; Back Pain Goal: 0 Pain Assessment Comments: Pt states she desires Epidural placement. Bolus in progress Vaginal Exam Dilatation (cms): 5.0 Effacement (%): 90 Station: -2 Membrane Status: Intact Datetime: 05/29/2016 06:07 Stage of : OB Triage Datetime: 05/29/2016 06:04 Vaginal Exam Dilatation (cms): 5.0 Effacement (%): 90 Station: -2 Exam By: SARA LAMAR Membrane Status: Intact Vaginal Bleeding: None Cervix, Consistency: Soft Cervix, Position: Midposition Datetime: 05/29/2016 05:23 Monitor Mode: Palpation Quality: Moderate Resting Tone [place]: Relaxed Datetime: 05/29/2016 05:22 Vaginal Exam Dilatation (cms): 3.5 Effacement (%): 70 Station: -3 Exam By: SARA LAMAR Vaginal Bleeding: None Cervix, Consistency: Soft Cervix, Position: Posterior Datetime: 05/29/2016 05:13 Assessment Type: Triage Maternal Assessment Level of Consciousness: Fully Conscious DTR's/Clonus: DTRs 2+; No Clonus Headache: Denies Blurred Vision: No Respiratory Effort: Unlabored; Regular Rhythm; Equal Expansion Breath Sounds, Left: Clear and Equal Breath Sounds, Right: Clear and Equal Nausea/Vomiting: Denies RUQ Epigastric Pain: Denies Lower Extremities Edema: Bilateral Lower Extremities Degree: 1+ Upper Extremities Edema: None Degree: None Facial Edema: None Temperature Route: Oral Fall Risk Assessment History of Falling: (0) No Secondary Diagnosis: (0) No Ambulatory Aid: (0) Bedrest/Nurse Assist IV Therapy: (0) No Gait: (0) Normal/Bedrest/Immobile Mental Status: (0) Oriented to Own Ability Fall Score: 0 Fall Risk Score Definition: No Risk: No action required Monitor Mode: External US Pain Assessment Pain Scale: 9 Pain Presence: Intermittent Pain Type: Cramping Pain Location: Abdomen; Back Pain Goal: 3 Pain Relief Measures: Comfort Measures Datetime: 05/29/2016 05:10 Monitor Mode: Palpation Quality: Moderate Resting Tone [place]: Relaxed Contraction Comments: abdomen soft upon palpation Comments: monitors placed Datetime: 05/29/2016 04:58 Time of Arrival: 05/29/2016 04:58 EGA: 39.0 Arrived By: Wheelchair Arrived From: Emergency Dept Chief Complaint: UC'S Movement: Present Contractions: Regular Time Contractions Began: 05/29/2016 01:59 Contractions: q2 mins Rupture of Membranes: Denies Vaginal Bleeding: Normal Show Vaginal Discharge: Present Recent Sexual Intercouse: Denies Abdominal Trauma: Not Applicable Patient Complaints: Contractions; Cramping Time Provider Notified: 05/29/2016 05:25 Provider Notified: HOPKINS Initial Plan: CONTINUOUS EFM, VE Datetime: 05/27/2016 12:20 Labor Evaluation Frequency: OCC Monitor Mode: External Quality: Mild Pattern: Normal: <= 5 Contractions in 10 Minutes Resting Tone [place]: Relaxed Heart Rate FHR Baseline Rate: 140 Monitor Mode: External US FHR Baseline Changes: No Baseline Change Variability: Moderate 6-25 bpm Accelerations: 15X15 Decelerations: None Category: Category I Pain Assessment Pain Scale: 5 Pain Presence: Intermittent Pain Type: Contraction; Pressure Pain Location: Abdomen; Back Pain Goal: 0 Pain Relief Measures: Comfort Measures Pain Assessment Comments: Pt c/o some pain only with contractions Datetime: 05/27/2016 11:58 EGA: 38.5 Datetime: 05/23/2016 19:34 Fall Score: 20 Fall Risk Score Definition: No Risk: No action required Datetime: 05/23/2016 11:38 EGA: 38.1 Datetime: 05/23/2016 11:06 Fall Score: 20 Fall Risk Score Definition: No Risk: No action required Datetime: 05/19/2016 18:56 Fall Score: 15 Fall Risk Score Definition: No Risk: No action required Datetime: 05/19/2016 18:51 EGA: 37.4 Datetime: 04/18/2016 10:36 Fall Score: 0 Fall Risk Score Definition: No Risk: No action required Datetime: 04/18/2016 10:35 EGA: 33.1
[2016-05-29] MEDS ORDERED: LIDOCAINE 1% (MPF) 30 ML INJ INJ PRN (06:30)
[2016-05-29] MEDS ORDERED: BUTORPHANOL 2 MG INJ IV PRN (06:30)
[2016-05-29] MEDS ORDERED: METHYLERGONOVINE 0.2 MG INJ IM PRN (06:30)
[2016-05-29] MEDS ORDERED: OXYTOCIN 30 UNITS/LR 500 ML IV PRN (06:30)
[2016-05-29] MEDS ORDERED: IBUPROFEN 600 MG TAB PO PRN (06:30)
[2016-05-29] MEDS ORDERED: CARBOPROST 250 MCG INJ IM PRN (06:30)
[2016-05-29] MEDS ORDERED: MISOPROSTOL 200 MCG TAB PR PRN (06:30)
[2016-05-29] MEDS ORDERED: OXYTOCIN 30 UNITS/LR 500 ML IV SCH (06:30)
[2016-05-29 06:33] LABS: INR 0.91; PROTIME 12.3 Sec (12.2-14.2)
[2016-05-29 06:34] LABS: PARTIAL THROMBOPLASTIN TIME 26.3 Sec (25.0-35.0)
[2016-05-29] MEDS ORDERED: FENTAnyl 2MCG/ML-ROPIV 0.2% 100 ML ONE (07:01)
[2016-05-29] MEDS ORDERED: DIPHENHYDRAMINE 50 MG INJ IV PRN (07:30)
[2016-05-29] MEDS ORDERED: ONDANSETRON 4 MG INJ IV PRN ×2 (07:30→11:30)
[2016-05-29] MEDS ORDERED: FENTAnyl 2MCG/ML-ROPIV 0.2% 100 ML BAG EPI SCH (07:30)
[2016-05-29] MEDS ORDERED: NALOXONE (0.4 MG/ML) INJ IV PRN (07:30)
[2016-05-29] MEDS ORDERED: MINERAL OIL LIGHT 10 ML VIAL TOP ONE (08:00)
[2016-05-29] MEDS: OXYTOCIN 30 UNITS/LR 500 ML IV SCH ×4 (08:34→19:15)
--- NOTE | 2016-05-29 08:54 | HP ---
Date/Time of Note Date/Time of Note DATE: 05/29/16 TIME: 08:50 OB - History Hx of Present Free Text/Dictation 21 years old female 3.0 para 1 EDC June 05 admitted to [facility] in active labor pelvic examination on admission cervix 4 cm dilated 70-80% effacement vertex at -2 station contraction every 3-4 minute heart rate category 1 Past Family/Social History * Past Medical, Surgical, Family and Obstetric Histories reviewed from chart. OB Admission Exam Vital Signs Vital Signs Vital Signs Date Time Temp Pulse Resp B/P Pulse Ox O2 Delivery O2 Flow Rate FiO2 05/29/16 05:14 97.7 61 18 111/61 Room Air Physical Exam HEENT: WNL Heart: Rhythm Normal Lungs: Clear, Equal Abdomen: WNL Extremities: Normal Reflexes: Normal Cervical Dilatation: 4cm Effacement: 75% Station: -1 Membranes: Intact Heart Rate: 130's Accelerations: Accelerations Present Decelerations: No Decelerations Varibility: Moderate Contractions on Admission: < 5 Minutes Apart Intensity: Moderate Last 72 hours Lab Results CBC & BMP 05/29/16 05:55 TIMOTHY HICKS MD May 29, 2016 08:54
--- NOTE | 2016-05-29 08:58 | LDN ---
Date/Time of Note Date/Time of Note DATE: 05/29/16 TIME: 08:54 Delivery Summary Normal spontaneous vaginal delivery of a baby boy from MATIAS position shoulders delivered without difficulty the rest of the baby's body followed cord clamped after stopped pulsation, nasal oropharyngeal suction performed on the baby and he was handed to the team for immediate attention patient received 20 units of Pitocin through IV infusion placenta spontaneous expulsion inspected complete blood loss 200 mL,. vaginal and perineal inspection no laceration noted Placenta Delivered: Spontaneously Meconium: none Perineum intact?: Yes Anesthesia type: Epidural Sponge & Needle done & correct: Yes All needle counts correct: Yes Any foreign bodies felt in the: No Problems: Infant Delivery Information Sex Sex: male Apgars 1 Minute: 9 5 Minute: 9 Suctioning Nose & mouth suctioned at albaro: Yes Delee suction performed: No Umbilical Cord Umbilical cord with: 3 Vessels Cord presentations: no nuchal cord Cord Blood was obtained: Yes TIMOTHY HICKS MD May 29, 2016 08:58
[2016-05-29 10:30] VITALS: BP 107/56; PULSE 83; RESP 18
[2016-05-29] MEDS ORDERED: ACETAMINOPHEN 325 MG TAB PO PRN (11:30)
[2016-05-29] MEDS ORDERED: OXYCODONE/ASPIRIN (4.88/325) TAB PO PRN ×2 (11:30)
[2016-05-29] MEDS ORDERED: LANOLIN 7 GM TUBE TOP PRN (11:30)
[2016-05-29] MEDS ORDERED: WITCH HAZEL/GLYCERIN PAD PR PRN (11:30)
[2016-05-29] MEDS ORDERED: DIBUCAINE 1% 30 GM OINT PR PRN (11:30)
[2016-05-29] MEDS ORDERED: BENZOCAINE 20% 56 ML SPRAY TOP PRN (11:30)
[2016-05-29] MEDS ORDERED: ACETAMINOPHEN/CODEINE #3 TAB PO PRN ×2 (11:30)
[2016-05-29 12:00] VITALS: BP 109/58; PULSE 82; RESP 17
[2016-05-29] MEDS: IBUPROFEN 600 MG TAB PO SCH ×2 (12:57→17:48)
[2016-05-29 16:00] VITALS: BP 99/52; PULSE 72; RESP 20
[2016-05-29 20:00] VITALS: BP 98/57; PULSE 80; RESP 18
[2016-05-29] MEDS: SENNA/DOCUSATE NA (8.6MG/50MG) TAB PO SCH (20:51)
[2016-05-30 00:10] VITALS: BP 103/59; PULSE 74; RESP 18
[2016-05-30] MEDS: IBUPROFEN 600 MG TAB PO SCH ×4 (00:14→17:25)
[2016-05-30 04:13] VITALS: BP 95/51; PULSE 70; RESP 16
[2016-05-30 04:31] VITALS: BP 115/60; RESP 16
[2016-05-30 07:06] LABS: ADD SCAN DIFF NO
[2016-05-30 07:19] LABS: BASOPHILS % 0.3 % (0.0-2.0); EOSINOPHILS # 0.2 10^3/ul (0.0-0.5); EOSINOPHILS % 2.1 % (0.0-7.0); HEMATOCRIT 31.6 % (37.0-47.0); HEMOGLOBIN 10.5 g/dl (12.0-16.0); LYMPHOCYTES # 2.4 10^3/ul (0.8-2.9); LYMPHOCYTES % 32.1 % (15.0-51.0); MEAN CORPUSCULAR HEMOGLOBIN 30.2 pg (29.0-33.0); MEAN CORPUSCULAR HGB CONC 33.2 g/dl (32.0-37.0); MEAN CORPUSCULAR VOLUME 90.8 fl (82.0-101.0); MEAN PLATELET VOLUME 9.8 fl (7.4-10.4); MONOCYTE # 0.4 10^3/ul (0.3-0.9); MONOCYTES % 5.4 % (0.0-11.0); NEUTROPHIL # 4.5 10^3/ul (1.6-7.5); NEUTROPHILS % 59.6 % (39.0-77.0); PLATELET COUNT 191 10^3/UL (140-415); RED BLOOD COUNT 3.48 10^6/ul (4.20-5.40); RED CELL DISTRIBUTION WIDTH 14.2 % (11.5-14.5); WHITE BLOOD COUNT 7.5 10^3/ul (4.8-10.8)
[2016-05-30 08:15] VITALS: BP 109/78; PULSE 78; RESP 17
[2016-05-30] MEDS: SENNA/DOCUSATE NA (8.6MG/50MG) TAB PO SCH ×2 (10:05→20:44)
--- NOTE | 2016-05-30 16:39 | PN ---
Date/Time of Note Date/Time of Note DATE: 05/30/16 TIME: 16:38 OB Subjective Subjective Subjective Laboratory Tests Test 05/30/16 06:16 Basophils # 0.010^3/ul Basophils % 0.3% Eosinophils # 0.210^3/ul Eosinophils % 2.1% Hematocrit 31.6% Hemoglobin 10.5g/dl Lymphocytes # 2.410^3/ul Lymphocytes % 32.1% Mean Corpuscular Hemoglobin 30.2pg Mean Corpuscular Hemoglobin Concent 33.2g/dl Mean Corpuscular Volume 90.8fl Mean Platelet Volume 9.8fl Monocytes # 0.410^3/ul Monocytes % 5.4% Neutrophils # 4.510^3/ul Neutrophils % 59.6% Nucleated Red Blood Cells # 0.010^3/ul Nucleated Red Blood Cells % 0.0/100WBC Platelet Count 75482^3/UL Red Blood Count 3.4810^6/ul Red Cell Distribution Width 14.2% White Blood Count 7.510^3/ul Current Medications Medications (Trade) Dose Ordered Sig/Chrystal Route PRN Reason Start Time Stop Time Status Last Admin Dose Admin Lactated Ringer's 1,000 ml @ 1,000 mls/hr Q1H ONCE IV 05/29/16 06:00 05/29/16 06:59 DC 05/29/16 05:55 Lactated Ringer's 1,000 ml @ 125 mls/hr Q8H IV 05/29/16 07:00 05/29/16 11:23 DC Lactated Ringer's (Lr) 1,000 ml @ 125 mls/hr Q8H IV 05/29/16 06:12 05/29/16 11:23 DC Butorphanol Tartrate (Stadol) 2 mg Q2H PRN IV PAIN 05/29/16 06:30 05/29/16 11:23 DC Lidocaine 30 ml 30 ml ONCE PRN INJ EPISIOTOMY/TEARING 05/29/16 06:30 05/29/16 11:23 DC Oxytocin/Lactated Ringer's 500 ml @ 125 mls/hr ONCE -MAY REPEAT X1 IV 05/29/16 06:30 05/29/16 11:23 DC 05/29/16 08:55 Oxytocin/Lactated Ringer's 500 ml @ 125 mls/hr ONCE IV 05/29/16 06:30 05/29/16 11:23 DC Ibuprofen 600 mg 600 mg ONCE PRN PO Mild Pain (Pain Score 1-3) 05/29/16 06:30 05/29/16 11:24 DC Lactated Ringer's 1,000 ml @ 2,000 mls/hr Q30M PRN IV PRE-EPIDURAL BOLUS 05/29/16 06:15 05/29/16 11:23 DC 05/29/16 06:48 Oxytocin/Lactated Ringer's 500 ml @ 0 mls/hr ONCE PRN IV For Hemorrhage Management 05/29/16 06:30 05/29/16 11:23 DC Methylergonovine Maleate (Methergine) 0.2 mg ONCE PRN IM VAGINAL BLEEDING 05/29/16 06:30 05/29/16 11:24 DC Carboprost Tromethamine (Hemabate) 250 mcg ONCE PRN IM VAGINAL BLEEDING 05/29/16 06:30 05/29/16 11:24 DC Misoprostol 1000 mcg 1,000 mcg ONCE PRN NE VAGINAL BLEEDING 05/29/16 06:30 05/29/16 11:24 DC Fentanyl/ Ropivacaine 100 ml @ STK-MED ONCE .ROUTE 05/29/16 07:01 05/29/16 07:02 DC Naloxone HCl (Narcan) 0.1 mg Q2M PRN IV FOR RESP RATE 8 OR LESS 05/29/16 07:30 05/29/16 11:24 DC Diphenhydramine HCl (Benadryl) 25 mg Q6H PRN IV ITCHING 05/29/16 07:30 05/30/16 07:29 DC Ondansetron HCl (Zofran Inj) 4 mg Q6H PRN IV NAUSEA AND/OR VOMITING 05/29/16 07:30 05/30/16 07:29 DC Fentanyl/ Ropivacaine 100 ml EPIDURAL INFUSION EPI 05/29/16 07:30 05/29/16 11:24 DC Mineral Oil 20 ml 20 ml ONCE ONCE TOP 05/29/16 08:00 05/29/16 08:01 DC 05/29/16 08:34 Oxytocin/Lactated Ringer's 500 ml @ 125 mls/hr Q4H IV 05/29/16 11:19 05/29/16 19:18 DC 05/29/16 13:05 Ibuprofen (Motrin) 600 mg Q6 PO 05/29/16 12:00 05/30/16 11:09 Acetaminophen (Tylenol Tab) 650 mg Q4H PRN PO PAIN LEVEL 1-5 05/29/16 11:30 Acetaminophen/ Codeine Phosphate (Tylenol No.3) 1 tab Q4H PRN PO PAIN LEVEL 1-5 05/29/16 11:30 Acetaminophen/ Codeine Phosphate (Tylenol No.3) 2 tab Q4H PRN PO PAIN LEVEL 6-10 05/29/16 11:30 Oxycodone/Aspirin (Percodan) 1 tab Q3H PRN PO PAIN LEVEL 1-5 05/29/16 11:30 Oxycodone/Aspirin (Percodan) 2 tab Q3H PRN PO PAIN LEVEL 6-10 05/29/16 11:30 Ondansetron HCl (Zofran Inj) 4 mg Q6H PRN IV NAUSEA AND/OR VOMITING 05/29/16 11:30 Senna/Docusate Sodium (Senokot-S) 1 tab BID PO 05/29/16 21:00 05/30/16 10:05 Witch [place]/ Glycerin (Tucks Pads) 1 pad BEDSIDE MEDICATION PRN NE HEMORRHOID/EPISIOTMY PAIN 05/29/16 11:30 05/29/16 12:57 Benzocaine (Dermoplast [place]) 1 spray BEDSIDE MEDICATION PRN TOP HEMORRHOID/EPISIOTMY PAIN 05/29/16 11:30 05/29/16 12:57 Dibucaine (Nupercainal) 1 applic BEDSIDE MEDICATION PRN NE HEMORRHOID/EPISIOTMY PAIN 05/29/16 11:30 05/29/16 12:57 Lanolin (Vgr-[id number]) 1 applic BEDSIDE MEDICATION PRN TOP BEDSIDE FOR LORIE TO NIPPLES 05/29/16 11:30 05/29/16 12:57 Measles/Mumps/ Rubella Vaccine Live (Mmr Ii Vaccine) 0.5 ml ONCE ONCE SC* 05/31/16 09:00 05/31/16 09:01 day1 Vital signs stable, afebrile, abdomen soft, uterus firm, lochia normal,, extremity normal TIMOTHY HICKS MD May 30, 2016 16:39
[2016-05-30 17:20] VITALS: BP 114/82; PULSE 77; RESP 16
[2016-05-30 20:00] VITALS: BP 95/56; PULSE 71; RESP 18
[2016-05-31] MEDS: IBUPROFEN 600 MG TAB PO SCH ×4 (00:02→18:00)
[2016-05-31 04:00] VITALS: BP 112/73; PULSE 83; RESP 18
[2016-05-31 08:00] VITALS: BP 112/68; PULSE 55; RESP 18
[2016-05-31] MEDS: SENNA/DOCUSATE NA (8.6MG/50MG) TAB PO SCH (09:00)
[2016-05-31] MEDS ORDERED: MEASLES,MUMPS,RUBELLA VACCINE INJ SC* ONE (09:00)
[2016-05-31 16:00] VITALS: BP 110/64; PULSE 90; RESP 18
--- NOTE | 2016-05-31 17:32 | PD.PPDC ---
FLOSSER Discharge Instruction Condition Patient Condition: Good Diet Diet: Resume Regular Diet Activity/Restrictions Activity: Normal Activity May Shower Restrictions: No Exercising No Lifting No Driving No Sexual Activity Nothing in the Vagina No [place] No Tampons, douche Follow-up Follow-up with Physician: 2, Week/Weeks Provider Information: Follow-up appointments for check in 2 weeks Return to clinic for [employer] Instructions: Fever greater than 101 Chills Worsening abdominal pain Excessive Vaginal Bleeding More than 2 pads per hour Unable to tolerate diet OB Instructions: Breast Tenderness Blurried Vision Headache TIMOTHY HICKS MD May 31, 2016 17:32
--- NOTE | 2016-05-31 17:34 | DS ---
Date/Time of Note Date/Time of Note DATE: 05/31/16 TIME: 17:33 Obstetrical Discharge Record Final Diagnosis Final Diagnosis: Term delivered Vaginal Delivery Obstetrical Delivery: Spontaneous Condition on Discharge Physical Assessment Last Vitals: day 2 VSs stable afebrile abdomen soft you choose for lochia normal extremity normal patient discharged home with follow-up instructions recommended to make appointment to be seen at the clinic in 2 weeks Voiding: Yes Bowel Movement: Yes Breast: Filling Fundus: Firm Calf Tenderness: No Patient Condition: Good TIMOTHY HICKS MD May 31, 2016 17:34
== END 2016-05-31 18:45 | disposition home or self-care (01) | DRG 775 ==
LOC: OBT 05:01 → L-D 05:04 → OBT 06:09 → PP1 11:45
PROVIDERS: ADMIT Obstetrics & Gynecology; ATTEND Obstetrics & Gynecology
PROC: 10E0XZZ Delivery of Products of Conception, External Approach (ICD-10-PCS; principal; 2016-05-29)
DX: O99.214 Obesity complicating childbirth (principal); Z68.41 Body mass index [BMI] 40.0-44.9, adult; E66.01 Morbid (severe) obesity due to excess calories; Z3A.37 37 weeks gestation of pregnancy; Z37.0 Single live birth
CPT/HCPCS: 36415; 62319; 85025; 85610; 85730; 86592; 86900; 86901; 87340; G0463; J2590; J3010; J7120

== ENCOUNTER 2018-08-17 13:51 | Outpatient (CLI) | payer MEDICAID, OTHER ==
[~2018-08-17] VITALS: Ht 157.5 cm; Wt 98.1 kg
[2018-08-17 14:58] VITALS: Ht 157.5 cm; Wt 98.1 kg
[2018-08-17 14:59] VITALS: BP 106/57; PULSE 82; RESP 18
--- NOTE | 2018-08-17 16:36 | HP ---
Date/Time of Note Date/Time of Note DATE: 08/17/18 TIME: 16:30 OB - History Hx of Present Free Text/Dictation 23 YO G 4 P2 with IUP at 27.2 weeks with EDC 11/14/2018. she reports to L&D for evaluation of possible PTL. she experienced irregular contractions earlier today. after resting in triage all contractions resolved. she denies any contractions at this time. she denies LOF per vagina or vaginal bleeding. she denies fever or chills or nausea or vomiting. she reports good FM. Care: Good Care Ultrasounds: Normal mid trimester US Obstetrical Complications: None Medical Complications: None Past Family/Social History * Past Medical, Surgical, Family and Obstetric Histories reviewed from chart. OB Admission Exam Vital Signs Vital Signs Vital Signs Date Temp Pulse Resp B/P (MAP) Pulse Ox O2 O2 Flow FiO2 Time Delivery Rate 08/17/18 98.5 82 18 106/57 14:59 (73) Physical Exam HEENT: WNL Heart: Rhythm Normal Lungs: Clear, Equal Abdomen: WNL Extremities: Normal Reflexes: Normal Cervical Dilatation: None Effacement: 0% Station: -3 OB Assessment/Plan Other Assessment: IUP at 27.2 weeks not in labor Other plan: pelvic rest for 3 weeks d/c home with PTL Precautions discussed with patient. TREVER GOVEA MD August 17, 2018 16:36
--- NOTE | 2018-08-17 18:02 | TRIAGE ---
OB Triage Datetime Report Generated by CPN: 08/17/2018 18:01 Datetime: 08/17/2018 16:23 Stage of : OB Triage Datetime: 08/17/2018 15:57 Labor Evaluation Frequency: 0 Monitor Mode: External Pattern: Normal: <= 5 Contractions in 10 Minutes Resting Tone [place]: Relaxed Heart Rate FHR Baseline Rate: 135 Monitor Mode: External US Variability: Moderate 6-25 bpm Accelerations: None Decelerations: None Pain Assessment Pain Scale: 0 Pain Presence: None/Denies Pain Type: N/A Pain Goal: 3 Pain Relief Measures: Comfort Measures Datetime: 08/17/2018 15:52 Vaginal Exam Dilatation (cms): 0.0 Exam By: S RUBI Vaginal Bleeding: None Cervix, Consistency: Firm Cervix, Position: Posterior Presentation 'A': Unable to Assess Datetime: 08/17/2018 15:04 Stage of : OB Triage Datetime: 08/17/2018 14:50 Stage of : OB Triage Assessment Type: Triage Maternal Assessment Level of Consciousness: Fully Conscious DTR's/Clonus: DTRs 2+; No Clonus Headache: Denies Blurred Vision: No Respiratory Effort: Unlabored; Regular Rhythm; Equal Expansion Breath Sounds, Left: Clear and Equal Breath Sounds, Right: Clear and Equal Nausea/Vomiting: Denies RUQ Epigastric Pain: Denies Facial Edema: None Temperature Route: Axillary Fall Risk Assessment History of Falling: (0) No Secondary Diagnosis: (0) No Ambulatory Aid: (0) Bedrest/Nurse Assist IV Therapy: (0) No Gait: (0) Normal/Bedrest/Immobile Mental Status: (0) Oriented to Own Ability Fall Score: 0 Fall Risk Score Definition: No Risk: No action required Monitor Mode: External Pattern: Normal: <= 5 Contractions in 10 Minutes Resting Tone [place]: Relaxed Heart Rate FHR Baseline Rate: 145 Monitor Mode: External US Variability: Moderate 6-25 bpm Accelerations: 10X10 Decelerations: None Category: Category I Pain Assessment Pain Scale: 5 Pain Presence: Constant Pain Type: Pressure Pain Location: Perineum Pain Goal: 3 Pain Relief Measures: Comfort Measures Datetime: 08/17/2018 14:45 Time of Arrival: 08/10/2018 13:47 EGA: 26.2 Arrived By: Ambulatory Arrived From: Home Chief Complaint: SENT IN FROM CLINIC TO R/O PTL, DENIES BLEEDING, LEAKING Movement: Present Contractions: Irregular Contractions: 6-7 Rupture of Membranes: Denies Vaginal Bleeding: None Vaginal Discharge: Denies Recent Sexual Intercouse: Denies Abdominal Trauma: Not Applicable Patient Complaints: Cramping Time Provider Notified: 08/17/2018 15:04 Provider Notified: riaz Initial Plan: MONITOR, BPP,CL, UA,C_S
== END 2018-08-17 16:40 | disposition home or self-care (01) ==
LOC: OBT 13:51 → L-D 13:52 → OBT 16:40
PROVIDERS: ATTEND Specialist
DX: O62.9 Abnormality of forces of labor, unspecified (principal); Z3A.27 27 weeks gestation of pregnancy
CPT/HCPCS: 76817; 76818; 81001; 87086; Z7500; G0463

== ENCOUNTER 2018-11-08 10:34 | Inpatient (IN) | payer OTHER ==
[~2018-11-08] VITALS: Ht 157.5 cm; Wt 102.2 kg
[2018-11-08 10:41] VITALS: Ht 157.5 cm; Wt 102.2 kg
[2018-11-08] MEDS ORDERED: METHYLERGONOVINE 0.2 MG INJ IM PRN ×2 (11:00→17:30)
[2018-11-08] MEDS ORDERED: IBUPROFEN 600 MG TAB PO PRN (11:00)
[2018-11-08] MEDS ORDERED: OXYTOCIN 30 UNITS/LR 500 ML IV SCH ×3 (11:00→17:16)
[2018-11-08] MEDS ORDERED: MISOPROSTOL 200 MCG TAB PR PRN ×2 (11:00→17:30)
[2018-11-08] MEDS ORDERED: LIDOCAINE 1% (MPF) 30 ML INJ INJ PRN (11:00)
[2018-11-08] MEDS ORDERED: CARBOPROST 250 MCG/ML VIAL IM PRN ×2 (11:00→17:30)
[2018-11-08] MEDS ORDERED: OXYTOCIN 30 UNITS/LR 500 ML IV PRN ×2 (11:00→17:30)
[2018-11-08] MEDS: LACTATED RINGER'S 1,000 ML IV SCH ×2 (11:07→18:39)
[2018-11-08 12:28] VITALS: BP 106/63; PULSE 70; RESP 16
[2018-11-08 15:45] VITALS: BP 111/56; PULSE 71; RESP 18
[2018-11-08] MEDS ORDERED: ONDANSETRON 4 MG INJ IV PRN (17:30)
[2018-11-08] MEDS ORDERED: DIPHENHYDRAMINE 25 MG CAP PO PRN (17:30)
[2018-11-08] MEDS ORDERED: ZOLPIDEM 5 MG TAB PO PRN (17:30)
[2018-11-08] MEDS ORDERED: LANOLIN HPA 1 PKT TOP PRN (17:30)
[2018-11-08] MEDS ORDERED: NACL 0.9% 3 ML SYG IV SCH (17:30)
[2018-11-08] MEDS ORDERED: WITCH HAZEL/GLYCERIN PAD PR PRN (17:30)
[2018-11-08] MEDS ORDERED: ACETAMINOPHEN 325 MG TAB PO PRN (17:30)
[2018-11-08] MEDS: IBUPROFEN 600 MG TAB PO SCH (17:55)
[2018-11-08 19:45] VITALS: BP 116/63; PULSE 83; RESP 18
[2018-11-08] MEDS: SENNA/DOCUSATE NA (8.6MG/50MG) TAB PO SCH (21:00)
[2018-11-09] VITALS: BP 105/58; PULSE 82; RESP 18
[2018-11-09] MEDS: IBUPROFEN 600 MG TAB PO SCH ×5 (00:15→23:53)
[2018-11-09] MEDS: LACTATED RINGER'S 1,000 ML IV SCH (02:39)
[2018-11-09 04:05] VITALS: BP 96/50; PULSE 71; RESP 18
[2018-11-09 07:50] VITALS: BP 105/64; PULSE 76; RESP 18
[2018-11-09] MEDS: SENNA/DOCUSATE NA (8.6MG/50MG) TAB PO SCH ×2 (09:08→21:00)
[2018-11-09] MEDS: PRENATAL VITAMIN PO SCH (09:08)
[2018-11-09 16:05] VITALS: BP 108/59; PULSE 73
[2018-11-09 19:50] VITALS: BP 109/66; PULSE 82; RESP 18
[2018-11-10 04:35] VITALS: BP 96/52; PULSE 80; RESP 16
[2018-11-10] MEDS: IBUPROFEN 600 MG TAB PO SCH ×2 (06:05→12:00)
[2018-11-10 08:12] VITALS: BP 98/62; PULSE 87; RESP 14
[2018-11-10] MEDS: PRENATAL VITAMIN PO SCH (08:51)
[2018-11-10] MEDS: SENNA/DOCUSATE NA (8.6MG/50MG) TAB PO SCH (09:00)
[2018-11-10] MEDS ORDERED: VARICELLA VACCINE LIVE/PF 1,350 UNIT/0.5 ML ML SC* ONE (09:00)
[2018-11-10] MEDS ORDERED: MEASLES,MUMPS,RUBELLA VACCINE INJ SC* ONE (09:00)
[2018-11-10] MEDS ORDERED: DIPHTH/TET/ACEL PERTUSS (ADULT) 0.5 ML VIAL IM* ONE (09:00)
== END 2018-11-10 12:30 | disposition home or self-care (01) | DRG 807 ==
LOC: L-D 10:34 → PP1 15:38
PROVIDERS: ADMIT Specialist; ATTEND Specialist
PROC: 10E0XZZ Delivery of Products of Conception, External Approach (ICD-10-PCS; principal; 2018-11-08)
DX: O62.3 Precipitate labor (principal); Z37.0 Single live birth; Z3A.39 39 weeks gestation of pregnancy
CPT/HCPCS: 85014; 85018; 85025; 85610; 85730; 86592; 86850; 86900; 86901; 87340; 99464; J2590; J7120

== ENCOUNTER 2018-11-13 08:16 | Emergency (ER) | payer OTHER ==
[~2018-11-13] VITALS: Ht 157.5 cm; Wt 90.0 kg
[2018-11-13 08:22] VITALS: Ht 157.5 cm; Wt 90.0 kg
[2018-11-13] MEDS ORDERED: IOHEXOL 100 ML ONE (09:51)
[2018-11-13] MEDS ORDERED: SOD CHLORIDE 0.9% 100 ML ONE (09:51)
[2018-11-13 11:08] VITALS: BP 120/72; PULSE 59; RESP 15
== END 2018-11-13 11:11 | disposition home or self-care (01) ==
LOC: E/R 08:16
DX: O90.89 Other complications of the puerperium, not elsewhere classified (principal); R07.89 Other chest pain; O99.345 Other mental disorders complicating the puerperium; F41.9 Anxiety disorder, unspecified
CPT/HCPCS: 71275; 80048; 81025; 93005; Q9967; Z7502; Z7610